=== PATIENT | female | born 1980 | race Caucasian/White ===

== ENCOUNTER 2016-11-27 21:49 | Emergency (ER) | payer OTHER ==
--- NOTE | 2016-11-27 22:11 | EDPHY ---
H & P Stated Complaint: Back pain, retention, for most of today. Time Seen by Provider: 11/27/16 22:05 HPI/ROS: CHIEF COMPLAINT: Dysuria, frequency and left flank pain HISTORY OF PRESENT ILLNESS: Patient is a 36-year-old female who comes to the emergency department complaining of dysuria, frequency and left flank pain. Her symptoms began this morning. She has not had a fever. She has not had any vomiting. She did have 1 episode of diarrhea yesterday but none since. No abdominal pain. She states this is similar to a kidney infection she had several years ago. She denies risk of . No vaginal bleeding or discharge. REVIEW OF SYSTEMS: Constitutional: denies: chills, fever, recent illness, recent injury EENTM: denies: blurred vision, double vision, nose congestion Respiratory: denies: cough, shortness of breath Cardiac: denies: chest pain, irregular heart rate, lightheadedness, palpitations Gastrointestinal/Abdominal: denies: abdominal pain, diarrhea, nausea, vomiting, blood streaked stools Genitourinary: See HPI Musculoskeletal: denies: joint pain, muscle pain Skin: denies: lesions, rash, jaundice, bruising Neurological: denies: headache, numbness, paresthesia, tingling, dizziness, weakness Hematologic/Lymphatic: denies: blood clots, easy bleeding, easy bruising Immunologic/allergic: denies: HIV/AIDS, transplant EXAM: GENERAL: Well-appearing, well-nourished and in no acute distress. HEAD: Atraumatic, normocephalic. EYES: Pupils equal round and reactive to light, extraocular movements intact, sclera anicteric, conjunctiva are normal. ENT: TMs normal, nares patent, oropharynx clear without exudates. Moist mucous membranes. NECK: Normal range of motion, supple without lymphadenopathy or JVD. LUNGS: Breath sounds clear to auscultation bilaterally and equal. No wheezes rales or rhonchi. HEART: Regular rate and rhythm without murmurs, rubs or gallops. ABDOMEN: Soft, nontender, normoactive bowel sounds. No guarding, no rebound. No masses appreciated. BACK: No CVA tenderness, no spinal tenderness, step-offs or deformities EXTREMITIES: Normal range of motion, no pitting or edema. No clubbing or cyanosis. NEUROLOGICAL: Cranial nerves II through XII grossly intact. Normal speech, normal gait. 5/5 strength, normal movement in all extremities, normal sensation PSYCH: Normal mood, normal affect. SKIN: Warm, dry, normal turgor, no visible rashes or lesions. Source: Patient Exam Limitations: No limitations - Personal History LMP (Females 10-55): 15-21 Days Ago Current Tetanus/Diphtheria Vaccine: Unsure Current Tetanus Diphtheria and Acellular Pertussis (TDAP): Unsure - Medical/Surgical History Hx Asthma: No Hx Chronic Respiratory Disease: No Hx Diabetes: No Hx Cardiac Disease: No Hx Renal Disease: No Hx Cirrhosis: No Hx Alcoholism: No Hx HIV/AIDS: No Hx Splenectomy or Spleen Trauma: No Other PMH: tonsillectomy. - Family History Significant Family History: No pertinent family hx - Social History Smoking Status: Former smoker Alcohol Use: None Drug Use: None Constitutional: Initial Vital Signs Temperature (C) 36.7 C 11/27/16 21:54 Heart Rate 60 11/27/16 21:54 Blood Pressure 123/87 H 11/27/16 21:54 O2 Sat (%) 98 11/27/16 21:54 O2 Delivery Mode Room Air Allergies/Adverse Reactions: Penicillins Allergy (Severe, Verified 11/27/16 21:57) Swelling/neck,face,throat Home Medications: Medication Instructions Recorded Cephalexin [Keflex] 500 mg PO TID #21 cap 11/27/16 Medical Decision Making ED Course/Re-evaluation: 10:30 p.m. we discussed the urinalysis which is very remarkable. We discussed other possible causes of left flank pain including kidney stones, ovarian cyst, ectopic , colitis etc. Patient does not have any tenderness on abdominal exam. She denies risk of . Last menstrual period was 3 weeks ago. She has not had any bleeding or discharge. I did offer to do lab work and ultrasound but she declines and would prefer to simply start taking antibiotics for what seems to be classically symptomatic urinary tract infection. I agree that this is reasonable but cautioned her strictly to return if her symptoms are worse she develops a fever worsening pain. Differential Diagnosis: Partial list of the Differential diagnosis considered include but were not limited to; urinary tract infection, pyelonephritis and although unlikely based on the history and physical exam, I also considered kidney stone, ovarian cyst, , ectopic, diverticulitis, appendicitis, hernia. I discussed these differential diagnoses and the plan with the patient as well as the usual and expected course. The patient understands that the diagnosis is provisional and that in medicine we are not always correct and that further workup is often warranted. Usual and customary warnings were given. All of the patient's questions were answered. The patient was instructed to return to the emergency department should the symptoms at all worsen or return, otherwise to followup with the physician as we discussed. - Data Points Medications Given: Discontinued Medications Cephalexin HCl (Keflex) 500 mg PO EDNOW ONE PRN Reason: Protocol Stop: 11/27/16 22:32 Last Admin: 11/27/16 22:34 Dose: 500 mg Departure - Departure Disposition: Home, Routine, Self-Care Clinical Impression: Urinary tract infection Qualifiers: Urinary tract infection type: acute cystitis Hematuria presence: without hematuria Qualified Code(s): N30.00 - Acute cystitis without hematuria Condition: Fair Instructions: Urinary Tract Infection in Women (ED) Referrals: NONE *PRIMARY CARE P,. [Primary Care Provider] - As per Instructions Abilio Luke DO [Medical Doctor] - As per Instructions Prescriptions: Cephalexin [Keflex] 500 mg PO TID #21 cap
[2016-11-27 22:13] LABS: COLOR YELLOW; LEUKOCYTE ESTERASE,URINE NEGATIVE (NEGATIVE); NITRITE,URINE NEGATIVE (NEGATIVE)
[2016-11-27 22:24] LABS: BACTERIA 2+ /hpf (NONE SEEN); MUCUS 1+ /lpf (NONE-1+); RBC,URINE NONE SEEN /hpf (0-3); WBC,URINE NONE SEEN /hpf (0-3)
[2016-11-27] MEDS ORDERED: CEPHALEXIN 500 MG CAP PO ONE (22:31)
[2016-11-27 22:42] VITALS: BP 132/87; PULSE 77; RESP 20; TEMP 98.4; O2SAT 96
== END 2016-11-27 22:42 | disposition home or self-care (01) ==
LOC: CED 21:49
DX: N30.00 Acute cystitis without hematuria (principal); B96.89 Other specified bacterial agents as the cause of diseases classified elsewhere; Z87.891 Personal history of nicotine dependence
CPT/HCPCS: 81003-PO; 81015-PO